=== PATIENT | female | born 1985 | race Caucasian/White ===

== ENCOUNTER → 2020-06-28 12:43 | Outpatient (CLI) | payer OTHER, SELFPAY ==
[2020-06-30 12:35] LABS: Rubeola Measles IgG > 300.0 AU/mL (Immune >16.4); Varicella IgG Antibody 644 index (Immune >165)
[2020-07-02 17:24] LABS: Rubella Antibody IgG 83.4 IU/mL (>15)
== END ==
PROVIDERS: PCP Registered Nurse; Referring Provider Registered Nurse; Visit Provider Registered Nurse
DX: Z01.84 Encounter for antibody response examination (principal)
CPT/HCPCS: 36415; 86735; 86762; 86765; 86787